=== PATIENT | male | born 1980 | race Two or more races ===

== ENCOUNTER 2020-02-23 11:16 | Observation (INO) ==
[2020-02-23 11:47] VITALS: BMI 24.2
--- NOTE | 2020-02-23 12:51 | DR.FEVERAD ---
HPI Time seen Time Seen by Provider: 02/23/20 11:52 PCP Primary Care Physician: ROSEMARIE HPI Comment HPI Comment: PATIENT IS 39YR OLD MALE IN ER WITH GENERALIZED WEAKNESS AND FEVER TIMES 3 DAYS. 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 HE HAS SLIGHT NON PRODUCTIVE COUGH AND HAS BEING IN CONTACT WITH COVID 19 PATIENT. TOOK TYLENOL FOR FEVER LAST NIGHT BUT NONE TODAY. HAVE SLIGHT HEADACHE WELL. Complaints/Symptoms Chief Complaint Doctor Comments: FEVER AND GENERALIZED WEAKNESS TIMES 3 DAYS. Chief Complaint:: PT C/O FEVER AND WEAKNESS. PT LAST TOOK SOMETHING FOR FEVER LAST NIGHT AND PT TOOK TYLENOL. COVID-19 Coronavirus risk:travel/contact w/high risk person: Yes Has patient experienced Coronavirus symptoms: Yes Coronavirus symptoms experienced: Fever Nurses notes reviewed Nurses Notes Review: Yes Source History Provided: Patient Mode of Arrival Mode of Arrival: Ambulatory Timing Onset of Chief Complaint: 02/20/20 Came on: Suddenly Duration Duration: Constant Duration: Hours Severity Fever Severity/Quality: greater than 102 F Context Recent: None Symptoms: Fever, Chills, Cough and SOB History of: None Modifying factors Modifying factors: Tylenol Associated signs and symptoms Associated signs and symptoms: Weakness and Myalgia PMH PMH Past Medical History: No Past Surgical History: No Family History History of Family Medical Conditions: No Social History Does any household member use tobacco: No Alcohol Use: None Do you use any recreational Drugs:: No Lives With: Family Lives Where: Home Travel Risk Coronavirus risk:travel/contact w/high risk person: Yes Has patient experienced Coronavirus symptoms: Yes Coronavirus symptoms experienced: Fever Infectious screening In the last 2 months have you had wt loss of >10#?: NO Have you had fever, night sweats or hemotysis?: Yes Have you traveled outside the country in the last 6 months?: No Isolation: Droplet ROS Review of Systems Constitutional: See HPI, Chills, Fever, Malaise, Weakness and Fatigue Eyes: No Symptoms Reported and See HPI; negative Blurred Vision and Diplopia ENTM: See HPI and Nose Congestion; negative Ear Pain, Nose Discharge and Throat Pain Respiratoy: See HPI, Non-Productive Cough and Short of Breath; negative Wheezing Cardiovascular: No Symptoms Reported and See HPI; negative Chest Pain, Edema and Palpitations Gastrointestinal/Abdominal: No Symptoms Reported and See HPI; negative Abdominal Pain, Diarrhea, Nausea and Vomiting Genitourinary: No Symptoms Reported and See HPI; negative Dysuria, Frequency and Hematuria Neurological: See HPI, Headache and Weakness; negative Dizziness Musculoskeletal: See HPI and Muscle Pain; negative Back Pain Integumentary: No Symptoms Reported and See HPI; negative Change in Color, Rash and Juandice Hematologic/Lymphatic: No Symptoms Reported and See HPI; negative Easy Bruising and Swollen Glands Endocrine: See HPI, Increased Thirst and Decreased Appetite; negative Increased Urine Psychiatric: No Symptoms Reported and See HPI All Other Systems: Reviewed and Negative PE Vital Signs Vitals: Temperature 98.1 F Pulse Rate [Left Brachial] 62 Pulse Rate 85 Respiratory Rate 18 Blood Pressure [Left Arm] 112/73 Blood Pressure 119/70 O2 Sat by Pulse Oximetry 97 General Limitations: Language Barrier General Appearance: Alert and In Distress Head Head Exam: Normal Inspection and Atraumatic Eyes Eye exam: Normal Appearance, PERRL and EOMI; negative Scleral Icterus and Conjunctival Injection ENT ENT Exam: Normal Exam, Normal Oropharynx, Normal External Ear Exam and TM's Normal Bilaterally External Ear Exam: Normal External Inspection; negative Mastoid Tenderness TM/Canal Exam: Bilateral: Normal Nose Exam: Normal Nose Exam; negative Sinus Tenderness Mouth Exam: Normal Inspection; negative Lip Swelling and Tongue Swelling Teeth Exam: Dental Caries; negative Dental Tenderness # and Gingival Swelling Throat Exam: Normal Inspection; negative Tonsillar Erythema, Tonsillomegaly and Tonsillar Exudate Neck Neck Exam: Normal Inspection and Trachea Midline; negative Tenderness and Lymphadenopathy Respiratory Respiratory Exam: Normal Lung Sounds Bilat; negative Accessory Muscle Use, Chest Wall Tenderness and Respiratory Distress Respiratory Exam: Bilateral: Rhonchi and Lower: Rhonchi Cardiovascular Cardiovascular Exam: Regular Rate, Normal Rhythm and Normal Heart Sounds; negative Systolic Murmur and Diastolic Murmur Abdominal Exam Abdominal Exam: Normal Inspection, Normal Bowel Sounds and Soft; negative Tenderness Extremities Extremities Exam: Normal Inspection and Normal Capillary Refill; negative Tenderness, Edema and Calf Tenderness Back Back Exam: Normal Inspection; negative (R) CVA Tenderness and (L) CVA Tenderness Neurologic Neurological Exam: Alert, Oriented X3 and CN II-XII Intact; negative Motor Sensory Deficit Psychiatric Psychiatric Exam: Normal Affect and Normal Mood Skin Skin Exam: Warm, Dry, Intact and Normal Color MDM Differential Diagnosis Differential Diagnosis: Dehydration, Influenza, Pneumonia (BRONCHITIS, COVID 19 INFECTION. VIRAL SYNDROME.), UTI and Viral syndrome COURSE Treatment Treatment: SEE ORDERS. NS IL IV BOLUS. ROCEPHIN 1GM IVPB. DISCUSSED PATIENTS CONDITION AND HE UNDERSTANT. STRESSED NEED FOR OXYGEN SUPPLEMENT. Education/Counseling Education/Counseling: Patient Educated On: Diagnosis ROR Labs Reviewed Laboratory Results Reviewed?: Yes Result Diagrams: 02/24/20 04:45 02/24/20 04:45 Laboratory: 02/23/20 14:25 Blood Blood Culture - Preliminary 02/23/20 14: Blood Blood Culture - Preliminary WBC 7.6 X10^3/uL (3.6-10.0) 02/23/20 14:20 RBC 4.93 X10^6/uL (4.7-6.0) 02/23/20 14:20 Hgb 15.4 g/dL (13.5-18.0) 02/23/20 14:20 Hct 42.9 % (42.0-54.0) 02/23/20 14:20 MCV 87.0 fL (80.0-100.0) 02/23/20 14:20 MCH 31.3 pg (27.0-34.0) 02/23/20 14:20 MCHC 35.9 g/dL (33.0-35.0) H 02/23/20 14:20 RDW 12.8 % (11.6-16.5) 02/23/20 14:20 Plt Count 117 X10^3/uL (150.0-450.0) L 02/23/20 14:20 MPV 10.2 fL (7.4-11.0) 02/23/20 14:20 Neut % (Auto) 88.1 % (42.0-75.0) H 02/23/20 14:20 Lymph % (Auto) 8.6 % (21.0-51.0) L 02/23/20 14:20 Cloud % (Auto) 3.1 % (0.0-13.0) 02/23/20 14:20 Eos % (Auto) 0.0 % (0.9-2.9) L 02/23/20 14:20 Baso % (Auto) 0.2 % (0.2-1.0) 02/23/20 14:20 Neut # (Auto) 6.7 x10^3/uL (2.2-4.8) H 02/23/20 14:20 Lymph # (Auto) 0.7 X10^3/uL (1.3-2.9) L 02/23/20 14:20 Cloud # (Auto) 0.2 x10^3/uL (0.3-0.8) L 02/23/20 14:20 Eos # (Auto) 0.0 x10^3/uL (0.0-0.2) 02/23/20 14:20 Baso # (Auto) 0.0 X10^3/uL (0.0-0.1) 02/23/20 14:20 Absolute Nucleated RBC 0.3 /100WBC 02/23/20 14:20 Sample Site Rrad 02/23/20 15:21 ABG pH 7.520 (7.35-7.45) H 02/23/20 15:21 ABG pCO2 34.0 mmHg (35.0-45.0) L 02/23/20 15:21 ABG pO2 69.0 mmHg (80.0-100.0) L 02/23/20 15:21 ABG HCO3 27.8 mmol/L (22-26) H 02/23/20 15:21 ABG O2 Saturation 95.0 % (90-100) 02/23/20 15:21 ABG Base Excess 5.0 mmol/L (-2.0-2.0) H 02/23/20 15:21 Vikas Test Pos 02/23/20 15:21 A-a Gradient 38.0 mmHg 02/23/20 15:21 FiO2 21.0 02/23/20 15:21 Blood Gas Comments Pt lizbet well elj sw 02/23/20 15:21 Sodium 135 mmol/L (136-145) L 02/23/20 14:20 Corrected Sodium TNP 02/23/20 14:20 Potassium 3.5 mmol/L (3.5-5.1) 02/23/20 14:20 Chloride 99 mmol/L (98-107) 02/23/20 14:20 Carbon Dioxide 28.2 mmol/L (21-32) 02/23/20 14:20 BUN 7 mg/dL (7-18) 02/23/20 14:20 Creatinine 1.14 mg/dL (0.70-1.30) 02/23/20 14:20 Est GFR (MDRD) Af Amer > 60 (>60) 02/23/20 14:20 Est GFR (MDRD) Non-Af > 60 (>60) 02/23/20 14:20 Glucose 106 mg/dL (65-99) H 02/23/20 14:20 Lactic Acid 1.4 mmol/L (0.4-2.0) 02/23/20 14:20 Calcium 8.2 mg/dL (8.5-10.1) L 02/23/20 14:20 Corrected Calcium 8.8 mg/dL (8.5-10.1) 02/23/20 14:20 Total Bilirubin 0.60 mg/dL (0.2-1.0) 02/23/20 14:20 AST 44 Units/L (15-37) H 02/23/20 14:20 ALT 46 Units/L (12-78) 02/23/20 14:20 Alkaline Phosphatase 87 Units/L (46-116) 02/23/20 14:20 Total Protein 7.3 g/dL (6.4-8.2) 02/23/20 14:20 Albumin 3.3 g/dL (3.4-5.0) L 02/23/20 14:20 Globulin 4.0 g/dL (2.5-4.5) 02/23/20 14:20 Albumin/Globulin Ratio 0.8 Ratio (1.1-2.1) L 02/23/20 14:20 RSV Nasal Swab Negative (NEGATIVE) 02/23/20 13:53 Influenza Type A Ag Negative-presumptive (NEGATIVE) 02/23/20 13:53 Influenza Type B Ag Negative-presumptive (NEGATIVE) 02/23/20 13:53 SARS-CoV-2 (PCR) Positive (NEGATIVE) A 02/23/20 16:53 S. pyogenes (TEM-PCR) Not detected (NOT DETECT) 02/23/20 13:53 Miscellaneous Test Cancelled 02/23/20 13:53 Other Results Comments: FINDINGS This is a baseline portable chest x-ray. Streaky peribronchial opacities are seen radiating from the hilar regions of the chest and become coalescent within the lower lobes. There is also a focal right hilar infiltrates suspected. Attention to this region of interest on follow-up is recommended to exclude adenopathy or mass in this region. IMPRESSION Acute right hilar infiltrates suspected along with subtle peribronchial infiltrates consistent with an atypical pneumonia pattern. Radiographic follow-up recommended to ensure clearance of the above findings. XRAY XRAY Interpreted by: Radiologist (REPORT NOTED AND DISCUSSED WITH PATIENT.) and Self (PUMONARY INFILTRATE.) Opioid Opioid Risk Tool Age (Darian box if 16-45): Yes History of Preadolescent Sexual Abuse: No Total: 1 Total Score Risk Category: Low Risk Copyright: [facility] predicting aberrant behaviors Diagnosis Discharge Problem: COVID-19 virus detected, Thrombocythemia, Acute respiratory alkalosis Pneumonia Qualifiers: Pneumonia type: due to unspecified organism Laterality: right Lung location: lower lobe of lung Qualified Code(s): J18.9 - Pneumonia, unspecified organism Instructions Instructions: Viral Respiratory Infection, [id number] Forms: Excuse From Work or School Precautions for COVID19 Patient Portal Social Distancing
[2020-02-23] MEDS ORDERED: TYLENOL 500 MG TAB EXTRA STRENGTH PO ONE ×2 (13:56→13:58)
--- NOTE | 2020-02-23 14:06 | RAD ---
HISTORYPT C/O FEVER AND WEAKNESSSTUDYCHEST, 1 VIEWCOMPARISONNoneTECHNIQUEPortable chest x-rayFINDINGSThis is a baseline portable chest x-ray. Streaky peribronchial opacities are seen radiating from the hilar regions of the chest and become coalescent within the lower lobes. There is also a focal right hilar infiltrates suspected. Attention to this region of interest on follow-up is recommended to exclude adenopathy or mass in this region.IMPRESSIONAcute right hilar infiltrates suspected along with subtle peribronchial infiltrates consistent with an atypical pneumonia pattern. Radiographic follow-up recommended to ensure clearance of the above findings.Electronically signed by: MICKIE GARRETT (February 23, 2020 14:04:47)
[2020-02-23 14:37] LABS: BASOPHILS % (AUTO) 0.2 % (0.2-1.0); HEMATOCRIT 42.9 % (42.0-54.0); HEMOGLOBIN 15.4 g/dL (13.5-18.0); LYMPHOCYTES # (AUTO) 0.7 X10^3/uL (1.3-2.9); LYMPHOCYTES % (AUTO) 8.6 % (21.0-51.0); MEAN CORPUSCULAR HEMOGLOBIN 31.3 pg (27.0-34.0); MEAN CORPUSCULAR HGB CONC 35.9 g/dL (33.0-35.0); MEAN PLATELET VOLUME 10.2 fL (7.4-11.0); MONOCYTES # (AUTO) 0.2 x10^3/uL (0.3-0.8); MONOCYTES % (AUTO) 3.1 % (0.0-13.0); NEUTROPHILS # (AUTO) 6.7 x10^3/uL (2.2-4.8); NEUTROPHILS % (AUTO) 88.1 % (42.0-75.0); PLATELET COUNT 117 X10^3/uL (150.0-450.0); RED BLOOD COUNT 4.93 X10^6/uL (4.7-6.0); RED CELL DISTRIBUTION WIDTH 12.8 % (11.6-16.5); WHITE BLOOD COUNT 7.6 X10^3/uL (3.6-10.0)
[2020-02-23 14:48] LABS: ALANINE AMINOTRANSFERASE 46 Units/L (12-78); ALBUMIN 3.3 g/dL (3.4-5.0); ALKALINE PHOSPHATASE 87 Units/L (46-116); ASPARTATE AMINO TRANSFERASE 44 Units/L (15-37); BLOOD UREA NITROGEN 7 mg/dL (7-18); CALCIUM 8.2 mg/dL (8.5-10.1); CARBON DIOXIDE 28.2 mmol/L (21-32); CHLORIDE 99 mmol/L (98-107); COR CA(FOR HYPOALB) 8.8 mg/dL (8.5-10.1); CREATININE 1.14 mg/dL (0.70-1.30); SODIUM 135 mmol/L (136-145); TOTAL PROTEIN 7.3 g/dL (6.4-8.2); eGFR NON BLACK RACES > 60 (>60)
[2020-02-23 14:52] LABS: LACTIC ACID 1.4 mmol/L (0.4-2.0)
[2020-02-23] MEDS ORDERED: NS 1000 ML 1,000 ML IV ONE (15:08)
[2020-02-23] MEDS ORDERED: ROCEPHIN VIAL 1 GRAM 1 G in NS 100 ML IV + SPIKE MINIBAG* 100 ML IV ONE (15:09)
[2020-02-23 15:14] LABS: RSV AG DETECTION NEGATIVE (NEGATIVE)
[2020-02-23 15:31] LABS: ABG ALLEN TEST POS; ABG HCO3 27.8 mmol/L (22-26)
[2020-02-23] MEDS ORDERED: NS 100 ML IV + SPIKE MINIBAG* 100 ML IV ONE (16:20)
[2020-02-23] MEDS ORDERED: NS 1000 ML 1,000 ML ONE (16:20)
[2020-02-23] MEDS ORDERED: ROCEPHIN VIAL 1 GRAM ONE (16:21)
[2020-02-23] MEDS ORDERED: NS 1/2 1000 ML IV 1,000 ML IV SCH (20:21)
[2020-02-23] MEDS ORDERED: TUSSIONEX PENNKINETIC SUSP PO PRN (20:21)
[2020-02-23] MEDS: ROBITUSSIN DM PO SCH (21:30)
[2020-02-23] MEDS ORDERED: NS 1/2 1000 ML IV 1,000 ML IV ONE (21:37)
[2020-02-24 05:20] LABS: BASOPHILS % (AUTO) 0.1 % (0.2-1.0); HEMATOCRIT 42.2 % (42.0-54.0); LYMPHOCYTES # (AUTO) 0.8 X10^3/uL (1.3-2.9); LYMPHOCYTES % (AUTO) 9.8 % (21.0-51.0); MEAN CORPUSCULAR HEMOGLOBIN 31.3 pg (27.0-34.0); MEAN CORPUSCULAR HGB CONC 35.6 g/dL (33.0-35.0); MEAN CORPUSCULAR VOLUME 87.8 fL (80.0-100.0); MEAN PLATELET VOLUME 11.2 fL (7.4-11.0); MONOCYTES # (AUTO) 0.3 x10^3/uL (0.3-0.8); MONOCYTES % (AUTO) 3.7 % (0.0-13.0); NEUTROPHILS # (AUTO) 6.8 x10^3/uL (2.2-4.8); NEUTROPHILS % (AUTO) 86.4 % (42.0-75.0); PLATELET COUNT 120 X10^3/uL (150.0-450.0); RED BLOOD COUNT 4.81 X10^6/uL (4.7-6.0); RED CELL DISTRIBUTION WIDTH 12.8 % (11.6-16.5); WHITE BLOOD COUNT 7.8 X10^3/uL (3.6-10.0)
[2020-02-24 05:37] LABS: ALANINE AMINOTRANSFERASE 47 Units/L (12-78); ALBUMIN 2.8 g/dL (3.4-5.0); ALKALINE PHOSPHATASE 90 Units/L (46-116); ASPARTATE AMINO TRANSFERASE 50 Units/L (15-37); BLOOD UREA NITROGEN 7 mg/dL (7-18); CALCIUM 7.6 mg/dL (8.5-10.1); CARBON DIOXIDE 28.2 mmol/L (21-32); CHLORIDE 99 mmol/L (98-107); COR CA(FOR HYPOALB) 8.6 mg/dL (8.5-10.1); CREATININE 1.12 mg/dL (0.70-1.30); SODIUM 134 mmol/L (136-145); TOTAL PROTEIN 6.6 g/dL (6.4-8.2); eGFR NON BLACK RACES > 60 (>60)
[2020-02-24] MEDS: ROBITUSSIN DM PO SCH (08:55)
[2020-02-24] MEDS ORDERED: LEVAQUIN PREMIX IV 750 MG 750 MG/150 ML BAG IV SCH (09:00)
[2020-02-24] MEDS ORDERED: LOVENOX INJ 40 MG SYR SC SCH (10:00)
--- NOTE | 2020-02-24 11:00 | DR.SSS ---
SHORT STAY SUMMARY Admission Date Date of Admission: 02/23/20 Discharge Date Discharge Date: 02/24/20 Admission Diagnoses Admission Diagnoses: COVID 19 Pneumonia Discharge Diagnoses Discharge Diagnoses: COVID 19 Pneumonia Chief Complaint Chief Complaint: Fever History of Present Illness History of Present Illness: Pt is a 39 yo m w/ no pmhx admitted for COVID 19 pneumonia. Pt reports having symptoms of fever, chills, shortness of breath for the past 4-5 days. Allergies Allergies Allergy/AdvReac Type Severity Reaction Status Date / Time No Known Drug Allergies Allergy Verified 02/23/20 11:44 Medications Home Medications: No Known Drug Allergies Allergy (Verified 02/23/20 11:44) Social History Does any household member use tobacco: No Alcohol Use: None Drug Use: None Review of Systems Constitutional: Fever and Chills Eyes: No Symptoms Reported ENT: No Symptoms Reported Respiratory: Cough, Shortness of Breath and Pleuritic Pain Cardiovascular: No Symptoms Reported Gastrointestinal: No Symptoms Reported Genitourinary: No Symptoms Reported Musculoskeletal: No Symptoms Reported Neurological: No Symptoms Reported Physical Exam Vital Signs: Last Vital Signs Temp 97.6 F 02/24/20 08:00 Pulse 59 L 02/24/20 08:00 Resp 14 02/24/20 08:00 BP 107/60 02/24/20 08:00 Pulse Ox 96 02/24/20 08:00 Oriented: Normal Eyes: Normal Ear: Normal Nose: Normal Respiratory: Rales Throughout and Wheezes Throughout Cardiovascular: Normal : Normal Auscultation: Bowel Sounds: Normal Palpation: Normal Tenderness: Normal Skin: Normal Musculoskeletal: Normal Psychiatric: Normal Mood Description: Calm Speech Pattern: Clear Labs Labs: Laboratory Last Values WBC 7.8 X10^3/uL (3.6-10.0) 02/24/20 04:45 RBC 4.81 X10^6/uL (4.7-6.0) 02/24/20 04:45 Hgb 15.0 g/dL (13.5-18.0) 02/24/20 04:45 Hct 42.2 % (42.0-54.0) 02/24/20 04:45 MCV 87.8 fL (80.0-100.0) 02/24/20 04:45 MCH 31.3 pg (27.0-34.0) 02/24/20 04:45 MCHC 35.6 g/dL (33.0-35.0) H 02/24/20 04:45 RDW 12.8 % (11.6-16.5) 02/24/20 04:45 Plt Count 120 X10^3/uL (150.0-450.0) L 02/24/20 04:45 MPV 11.2 fL (7.4-11.0) H 02/24/20 04:45 Neut % (Auto) 86.4 % (42.0-75.0) H 02/24/20 04:45 Lymph % (Auto) 9.8 % (21.0-51.0) L 02/24/20 04:45 [place] % (Auto) 3.7 % (0.0-13.0) 02/24/20 04:45 Eos % (Auto) 0.0 % (0.9-2.9) L 02/24/20 04:45 Baso % (Auto) 0.1 % (0.2-1.0) L 02/24/20 04:45 Neut # (Auto) 6.8 x10^3/uL (2.2-4.8) H 02/24/20 04:45 Lymph # (Auto) 0.8 X10^3/uL (1.3-2.9) L 02/24/20 04:45 [place] # (Auto) 0.3 x10^3/uL (0.3-0.8) 02/24/20 04:45 Eos # (Auto) 0.0 x10^3/uL (0.0-0.2) 02/24/20 04:45 Baso # (Auto) 0.0 X10^3/uL (0.0-0.1) 02/24/20 04:45 Absolute Nucleated RBC 0.0 /100WBC 02/24/20 04:45 Sample Site Rrad 02/23/20 15:21 ABG pH 7.520 (7.35-7.45) H 02/23/20 15:21 ABG pCO2 34.0 mmHg (35.0-45.0) L 02/23/20 15:21 ABG pO2 69.0 mmHg (80.0-100.0) L 02/23/20 15:21 ABG HCO3 27.8 mmol/L (22-26) H 02/23/20 15:21 ABG O2 Saturation 95.0 % (90-100) 02/23/20 15:21 ABG Base Excess 5.0 mmol/L (-2.0-2.0) H 02/23/20 15:21 Vikas Test Pos 02/23/20 15:21 A-a Gradient 38.0 mmHg 02/23/20 15:21 FiO2 21.0 02/23/20 15:21 Blood Gas Comments Pt lizbet well elj sw 02/23/20 15:21 Sodium 134 mmol/L (136-145) L 02/24/20 04:45 Corrected Sodium TNP 02/24/20 04:45 Potassium 3.6 mmol/L (3.5-5.1) 02/24/20 04:45 Chloride 99 mmol/L (98-107) 02/24/20 04:45 Carbon Dioxide 28.2 mmol/L (21-32) 02/24/20 04:45 BUN 7 mg/dL (7-18) 02/24/20 04:45 Creatinine 1.12 mg/dL (0.70-1.30) 02/24/20 04:45 Est GFR (MDRD) Af Amer > 60 (>60) 02/24/20 04:45 Est GFR (MDRD) Non-Af > 60 (>60) 02/24/20 04:45 Glucose 94 mg/dL (65-99) 02/24/20 04:45 Lactic Acid 1.4 mmol/L (0.4-2.0) 02/23/20 14:20 Calcium 7.6 mg/dL (8.5-10.1) L 02/24/20 04:45 Corrected Calcium 8.6 mg/dL (8.5-10.1) 02/24/20 04:45 Total Bilirubin 0.60 mg/dL (0.2-1.0) 02/24/20 04:45 AST 50 Units/L (15-37) H 02/24/20 04:45 ALT 47 Units/L (12-78) 02/24/20 04:45 Alkaline Phosphatase 90 Units/L (46-116) 02/24/20 04:45 Total Protein 6.6 g/dL (6.4-8.2) 02/24/20 04:45 Albumin 2.8 g/dL (3.4-5.0) L 02/24/20 04:45 Globulin 3.8 g/dL (2.5-4.5) 02/24/20 04:45 Albumin/Globulin Ratio 0.7 Ratio (1.1-2.1) L 02/24/20 04:45 RSV Nasal Swab Negative (NEGATIVE) 02/23/20 13:53 Influenza Type A Ag Negative-presumptive (NEGATIVE) 02/23/20 13:53 Influenza Type B Ag Negative-presumptive (NEGATIVE) 02/23/20 13:53 SARS-CoV-2 (PCR) Positive (NEGATIVE) A 02/23/20 16:53 S. pyogenes (TEM-PCR) Not detected (NOT DETECT) 02/23/20 13:53 Miscellaneous Test Cancelled 02/23/20 13:53 Assessment/Plan (1) Pneumonia due to COVID-19 virus: Hospital Course Hospital Course: Pt is a 39 yo m w/ no pmhx admitted for COVID 19 pneumonia. Pt reports having symptoms of fever, chills, shortness of breath for the past 4-5 days. Labs/imaging:Wbc 7.8, Hgb 15, Plt 120, Na 134, K 3.6, Cr 1.12, Gluc 94. ABG 7.52/34/69/27/95% on RA. COVID-19 positive on 02/23/20. CXR: Acute right hilar infiltrates suspected along with subtle peribronchial infiltrates consistent with an atypical pneumonia pattern. Pt was started on antibiotics and supplemental oxygen but was able to weaned off soon due to decreased shortness of breath. Pulse Ox >90% on RA. VS wnl. HEENT:NC/AT, Cardiac:RRR,no murmurs, rubs, or gallops, LUNG:mild diffuse end expiratory wheezing, rhonchi, ABD:+BS, nondistended, nontender, EXT:no edema. Pt is stable on discharge, will rx Z-pack and prednisone course. Follow up with pcp in 10-14 days. Discharge Medications Discharge Medications: Prescriptions: Discharge Disposition Discharge Disposition: Home
[2020-02-24 12:15] VITALS: BP 110/73
[2020-02-24] MEDS ORDERED: ROCEPHIN VIAL 1 GRAM 1 G in NS 100 ML IV + SPIKE MINIBAG* 100 ML IV SCH (16:00)
== END 2020-02-24 12:35 | disposition home or self-care (01) ==
LOC: ICU 11:42 → ER 11:42 → ICU 19:38
PROVIDERS: ADMIT Family Medicine; ATTEND Family Medicine
DX: U07.1 COVID-19; R06.02 Shortness of breath; R50.9 Fever, unspecified; J12.89 Other viral pneumonia; R53.1 Weakness
CPT/HCPCS: 36415; 36600; 71010; 71045; 80053; 82803; 83605; 85025; 87040; 87070; 87205; 87400; 87420; 87635; 87651; 87804; 96365; 96374; 99284; A4222; G0378; J0696; J1956; J7030; J7050